=== PATIENT | female | born 1960 | race American Indian/Alaskan Native ===

== ENCOUNTER 2018-01-18 08:32 | Outpatient (CLI) | payer MEDICARE ==
--- NOTE | 2018-01-18 11:41 | Ultrasound Report ---
ULTRASOUND SOFT TISSUE HEAD AND NECK INDICATION: Malignant neoplasm of thyroid gland. COMPARISON: None similar. FINDINGS: Longitudinal and transverse grayscale and color flow sonographic evaluation of the neck, including the thyroid bed demonstrates bilateral thyroidectomy without recognizable thyroid tissue. Lymph node evaluation at multiple levels bilaterally also performed with few visualized lymph nodes suggesting normal sonographic appearance with the largest lymph nodes level II bilaterally, measuring up to 1.3 x 0.5 x 0.6 cm as on image 14. CONCLUSION: Total thyroidectomy without abnormal cervical lymphadenopathy identified, as described. Please correlate. Thank you for the opportunity to participate in this patient's care.
== END 2018-01-18 08:33 | disposition home or self-care (01) ==
LOC: US 08:32
PROVIDERS: ATTEND Internal Medicine Endocrinology, Diabetes & Metabolism
DX: Z08 Encounter for follow-up examination after completed treatment for malignant neoplasm (principal); E89.0 Postprocedural hypothyroidism; Z85.850 Personal history of malignant neoplasm of thyroid
CPT/HCPCS: 76536

== ENCOUNTER 2019-01-06 10:52 | Emergency (ER) | payer MEDICARE ==
[2019-01-06] MEDS ORDERED: ASPIRIN PO ONE (11:08)
[2019-01-06] MEDS ORDERED: NITROSTAT SL ONE (11:42)
--- NOTE | 2019-01-06 11:46 | Emergency Department Report ---
ED Chest Pain HPI - General Chief Complaint: Chest Pain Stated Complaint: CHEST PAIN Time Seen by Provider: 01/06/19 11:41 Source: patient Mode of arrival: Ambulatory Limitations: No Limitations - History of Present Illness Initial Comments: This is a 58-year-old female nontoxic, well nourished in appearance, no acute signs of distress presents to the ED with c/o of left sided chest pain and SOB x 5 days. Patient stated that chest pain radiates to shoulder area. Patient describes pain as aching and tightness intermittently. Patient denies any upper respiratory symptoms. Patient denies any hemoptysis, fever, chills, nausea, vomiting, headache, stiff neck, numbness, tingling, abdominal pain. Patient denies any recent travels or long car rides. Patient denies any recent surgeries or any sick contacts. Patient stated has history of cardiac with 2 stents placed. MD Complaint: chest pain -: days(s) (5) Pain Location: left chest Pain Radiation: LUE Severity: mild Severity scale (0 -10): 8 Quality: tightness, aching Consistency: intermittent Improves With: nothing Worsens With: nothing re: denies: nausea, vomting, diaphoresis, dyspnea, sense of impending doom Other Symptoms: denies: cough, fever, syncope, rash, acid taste in mouth, leg swelling, palpitations, burping Treatments Prior to Arrival: none Aspirin use within the Past 7 Days: (1) Yes - Related Data On Oral Contraceptives: No Home Medications Medication Instructions Recorded Confirmed Last Taken Aspirin [Aspirin BABY CHEW TAB] 81 mg PO QDAY 09/25/13 12/18/15 12/17/15 09:00 Atorvastatin [Lipitor] 40 mg PO QDAY 09/25/13 12/18/15 12/17/15 20:00 Isosorbide Mononitrate [Isosorbide 30 mg PO QDAY 09/25/13 12/18/15 12/18/15 06:00 Mononitrate ER] Lisinopril [Zestril TAB] 40 mg PO QDAY 09/25/13 12/18/15 12/18/15 06:00 Metoprolol [Lopressor TAB] 100 mg PO BID 09/25/13 12/18/15 12/18/15 06:00 glipiZIDE [glipiZIDE XL] 10 mg PO BID 09/25/13 12/18/15 12/17/15 20:00 Metformin HCl [Glucophage] 1,000 mg PO BID 01/01/15 12/18/15 12/17/15 20:00 Gabapentin [Neurontin] 100 mg PO PRN PRN 12/18/15 12/18/15 12/17/15 20:00 Levothyroxine [Synthroid] 150 mcg PO QAM 12/18/15 12/18/15 12/17/15 09:00 Previous Rx's Medication Instructions Recorded Last Taken Type dilTIAZem CD [Cardizem Cd] 180 mg PO QDAY #30 cap 12/18/15 Unknown Rx Allergies Allergy/AdvReac Type Severity Reaction Status Date / Time amlodipine AdvReac Unknown Verified 01/01/15 16:52 canagliflozin [From Invokana] AdvReac Unknown Verified 01/01/15 16:54 ciprofloxacin [From Cipro] AdvReac Unknown Verified 01/01/15 16:54 ciprofloxacin HCl AdvReac Unknown Verified 01/01/15 16:54 [From Cipro] hydralazine AdvReac Unknown Verified 01/01/15 16:52 pioglitazone AdvReac Unknown Verified 01/01/15 16:54 pioglitazone HCl [From Actos] AdvReac Unknown Verified 01/01/15 16:54 saxagliptin HCl AdvReac Unknown Verified 01/01/15 16:54 [From Onglyza] sulfamethoxazole AdvReac Unknown Verified 01/01/15 16:54 [From Bactrim] trimethoprim [From Bactrim] AdvReac Unknown Verified 01/01/15 16:54 Heart Score - HEART Score History: Moderately suspicious EKG: Normal Age: 45-65 Risk factors: > 3 risk factors or hx of atherosclerotic disease Troponin: < normal limit HEART Score: 4 ED Review of Systems ROS: Stated complaint: CHEST PAIN Other details as noted in HPI Constitutional: denies: chills, fever Eyes: denies: eye pain, eye discharge, vision change ENT: denies: ear pain, throat pain Respiratory: shortness of breath. denies: cough, wheezing Cardiovascular: chest pain. denies: palpitations Endocrine: no symptoms reported Gastrointestinal: denies: abdominal pain, nausea, diarrhea Genitourinary: denies: urgency, dysuria, discharge Musculoskeletal: denies: back pain, joint swelling, arthralgia Skin: denies: rash, lesions Neurological: denies: headache, weakness, paresthesias Psychiatric: denies: anxiety, depression Hematological/Lymphatic: denies: easy bleeding, easy bruising ED Past Medical Hx - Past Medical History Hx Hypertension: Yes Hx CVA: Yes (03/2010) Hx Heart Attack/AMI: Yes Hx Congestive Heart Failure: No Hx Diabetes: Yes Hx GERD: Yes Hx Asthma: No - Surgical History Hx Coronary Stent: Yes (LAD and Circ) Additional Surgical History: x 3,TONSILECTOMY - Social History Smoking Status: Never Smoker - Medications Home Medications: Home Medications Medication Instructions Recorded Confirmed Last Taken Type Aspirin [Aspirin BABY CHEW TAB] 81 mg PO QDAY 09/25/13 12/18/15 12/17/15 09:00 History Atorvastatin [Lipitor] 40 mg PO QDAY 09/25/13 12/18/15 12/17/15 20:00 History Isosorbide Mononitrate [Isosorbide 30 mg PO QDAY 09/25/13 12/18/15 12/18/15 06:00 History Mononitrate ER] Lisinopril [Zestril TAB] 40 mg PO QDAY 09/25/13 12/18/15 12/18/15 06:00 History Metoprolol [Lopressor TAB] 100 mg PO BID 09/25/13 12/18/15 12/18/15 06:00 History glipiZIDE [glipiZIDE XL] 10 mg PO BID 09/25/13 12/18/15 12/17/15 20:00 History Metformin HCl [Glucophage] 1,000 mg PO BID 01/01/15 12/18/15 12/17/15 20:00 History Gabapentin [Neurontin] 100 mg PO PRN PRN 12/18/15 12/18/15 12/17/15 20:00 History Levothyroxine [Synthroid] 150 mcg PO QAM 12/18/15 12/18/15 12/17/15 09:00 History dilTIAZem CD [Cardizem Cd] 180 mg PO QDAY #30 cap 12/18/15 Unknown Rx ED Physical Exam - General Limitations: No Limitations General appearance: alert, in no apparent distress - Head Head exam: Present: atraumatic, normocephalic - Eye Eye exam: Present: normal appearance - Neck Neck exam: Present: normal inspection, full ROM. Absent: tenderness, meningismus, lymphadenopathy - Respiratory Respiratory exam: Present: normal lung sounds bilaterally. Absent: respiratory distress, wheezes, rales, rhonchi, stridor, chest wall tenderness, accessory muscle use, decreased breath sounds, prolonged expiratory - Cardiovascular Cardiovascular Exam: Present: regular rate, normal rhythm. Absent: systolic murmur - Extremities Exam Extremities exam: Present: normal inspection, full ROM - Back Exam Back exam: Present: normal inspection, full ROM - Neurological Exam Neurological exam: Present: alert, oriented X3 - Psychiatric Psychiatric exam: Present: normal affect, normal mood - Skin Skin exam: Present: warm, dry, intact, normal color. Absent: rash ED Course Vital Signs 01/06/19 01/06/19 11:07 12:02 Temperature 97.5 F L Pulse Rate 71 71 Respiratory 16 Rate Blood Pressure 126/70 Blood Pressure 126/75 [Right] O2 Sat by Pulse 98 Oximetry - Reevaluation(s) Reevaluation #1: 01/06/19 11:47 Patient is speaking in full sentences with no signs of distress noted. FRANCISCO score - Francisco Score Age > 65: (0) No Aspirin use within the Past 7 Days: (1) Yes 3 or more CAD Risk Factors: (1) Yes 2 or more Angina events in past 24 hrs: (1) Yes Known CAD with more than 50% Stenosis: (1) Yes Elevated Cardiac Markers: (0) No ST Deviation Greater than 0.5mm: (0) No FRANCISCO Score: 4 ED Medical Decision Making - Lab Data Result diagrams: 01/06/19 11:46 01/06/19 11:46 - Medical Decision Making This is a 58-year-old female that presents with chest pain. Patient is stable and was examined by me and Nai Marshall. FRANCISCO and HEART score elevated for admission. Wells criteria for DVT/SVT/PE 0 points. Labs obtained. EKG with no significant changes in ST. Chest xray dictated by the radiologist. Patient was discussed with Nai Marshall and examined patient and agrees to the admission. When discussed concerns of patient's condition and admission patient refused and stated she has a doctor appointment tomorrow for her neck and back. I educated initial dictation of my concerns if not fully evaluated and treated for any cardiac conditions the patient still refused. I did tell patient that if symptoms worsen to come back to emergency room as soon as possible for further evaluation. She also was instructed to follow-up with her wool presser in 24 hours. At time of signing AMA, the patient does not seem toxic or ill in appearance. No acute signs of distress noted. Patient agrees to treatment plan of care. No further questions noted by the patient. Patient did sign AGAINST MEDICAL ADVICE form. Critical care attestation.: If time is entered above; I have spent that time in minutes in the direct care of this critically ill patient, excluding procedure time. ED Disposition Clinical Impression: Shortness of breath CAD (coronary artery disease) Qualifiers: Coronary Disease-Associated Artery/Lesion type: unspecified vessel or lesion type [place] vs. transplanted heart: [place] heart Associated angina: with stable angina Qualified Code(s): I25.118 - Atherosclerotic heart disease of [place] coronary artery with other forms of angina pectoris Chest pain Qualifiers: Chest pain type: unspecified Qualified Code(s): R07.9 - Chest pain, unspecified Disposition: DC-07 LEFT AGAINST MED ADVICE Is pt being admited?: No Does the pt Need Aspirin: No Condition: Stable Instructions: Chest Pain (ED) Additional Instructions: Follow-up with a wool presser doctor in 24 hours or if symptoms worsen and continue return to emergency room as soon as possible. Your condition may be serious as instructed and educated today in the ER but you decided to leave AGAINST MEDICAL ADVICE. It is highly recommended to see a provider as soon as possible to rule out serious medical conditions as was told to you. Referrals: [facility] [Outside] - 3-5 Days PRIMARY MD CHERYLE [Primary Care Provider] - 3-5 Days AMY CARVALHO MD [Staff Physician] - 24 Hours MANUELA BARRETT MD [Staff Physician] - TARA Forms: AMA Form
[2019-01-06 12:07] LABS: Basophils % (Auto) 0.3 % (0.0-1.8); Eosinophils # (Auto) 0.3 K/mm3 (0.0-0.4); Eosinophils % (Auto) 4.3 % (0.0-4.3); Hemoglobin 11.7 gm/dl (10.1-14.3); Lymphocytes # (Auto) 1.5 K/mm3 (1.2-5.4); Lymphocytes % (Auto) 19.2 % (13.4-35.0); Mean Corpuscular HGB Conc 33 % (30-34); Mean Corpuscular Volume 79 fl (79-97); Monocytes # (Auto) 0.6 K/mm3 (0.0-0.8); Monocytes % (Auto) 7.9 % (0.0-7.3); Platelet Count 226 K/mm3 (140-440); Red Blood Count 4.54 M/mm3 (3.65-5.03); Red Cell Distribution Width 15.1 % (13.2-15.2)
--- NOTE | 2019-01-06 12:10 | XRay Report ---
PROCEDURE: XR CHEST ROUTINE 2V TECHNIQUE: Frontal and lateral views of the chest HISTORY: Chest Pain COMPARISONS: None. FINDINGS: The cardiomediastinal silhouette is normal in appearance. There is an 8 mm calcified granuloma in the left upper lobe. The lungs are otherwise clear. No focal consolidation. No pleural effusion or pneumothorax. No acute bony or soft tissue abnormality. IMPRESSION: No acute cardiopulmonary disease. This document is electronically signed by Reena Sinclair MD., January 06 2019 12:08:39 PM ET
[2019-01-06 12:18] LABS: INR 0.93 (0.87-1.13)
[2019-01-06 12:19] LABS: Partial Thromboplastin Time 27.5 Sec. (24.2-36.6)
[2019-01-06 12:30] LABS: BUN/Creatinine Ratio 31; Blood Urea Nitrogen 22 mg/dL (7-17); Calcium 9.5 mg/dL (8.4-10.2); Hemolysis Index 0
[2019-01-06 12:43] VITALS: BP 126/70
== END 2019-01-06 12:50 | disposition left against medical advice (07) ==
LOC: ED 10:52
DX: I25.118 Atherosclerotic heart disease of native coronary artery with other forms of angina pectoris (principal); I10 Essential (primary) hypertension; E11.9 Type 2 diabetes mellitus without complications; K21.9 Gastro-esophageal reflux disease without esophagitis; I25.2 Old myocardial infarction; Z86.73 Personal history of transient ischemic attack (TIA), and cerebral infarction without residual deficits; Z88.8 Allergy status to other drugs, medicaments and biological substances; Z88.1 Allergy status to other antibiotic agents; Z88.2 Allergy status to sulfonamides
CPT/HCPCS: 36415; 71046; 80048; 84484; 85025; 85610; 85730; 93005; 93010

== ENCOUNTER 2022-04-26 09:25 | Emergency (ER) | payer MEDICARE ==
[2022-04-26 09:36] VITALS: BP 195/96
== END 2022-04-26 12:00 | disposition left against medical advice (07) ==
LOC: ED 09:25
DX: R10.9 Unspecified abdominal pain (principal); Z53.21 Procedure and treatment not carried out due to patient leaving prior to being seen by health care provider